=== PATIENT | female | born 1970 | race Hispanic/Latino ===

== ENCOUNTER 2017-01-05 05:03 | Emergency (ER) | payer OTHER ==
[2017-01-05 05:12] VITALS: BMI 24.0
[2017-01-05] MEDS ORDERED: Sodium Chloride 0.9% 1,000 ML IV STA (05:22)
[2017-01-05 05:25] VITALS: TEMP 97.5
--- NOTE | 2017-01-05 05:32 | ED PDOC ---
Arrival/HPI <Luke Kahn - Last Filed: 01/05/17 06:01> - General Historian: Patient <LAURELSILVANONANISHERI - Last Filed: 01/05/17 06:59> - General Chief Complaint: GI Problem Time Seen by Provider: 01/05/17 05:04 - History of Present Illness Narrative History of Present Illness (Text): 01/05/17 05:25 Ms. Alanis is a 46 year old female with past medical history significant for schizophrenia, depression and COPD who presents to the emergency department complaining of diarrhea. She reports that the onset of the diarrhea was four weeks ago. She describes the stool as black, loose, watery stool. She denies any blood in her stool. She has attempted to take Imotrole and Imodium without relief. She denies any alleviating or aggravating factors. She admits to poor oral intake of appropriate fluids and nutrition. She reports not having her appendix or gallbladder. Patient indicated that her fiance 2 weeks ago with similar symptoms of diarrhea. She indicated that her life is very stressful and she is currently drinking alcohol every day. She reports taking in only 2 beers a day. (SHERI BROWN) Past Medical History - Provider Review Nursing Documentation Reviewed: Yes <Luke Kahn - Last Filed: 01/05/17 06:01> - Provider Review Nursing Documentation Reviewed: Yes - Infectious Disease Hx of Infectious Diseases: None - Tetanus Immunization Tetanus Immunization: Unknown - Cardiac Hx Cardiac Disorders: Yes Hx Hypertension: Yes - Pulmonary Hx Chronic Obstructive Pulmonary Disease (COPD): Yes Hx Emphysema: Yes Hx Tuberculosis: No - Neurological HX Cerebrovascular Accident: No Hx Seizures: No - HEENT Hx HEENT Disorder: No - Renal Hx Renal Disorder: No - Endocrine/Metabolic Hx Endocrine Disorders: No - Hematological/Oncological Hx Cancer: No - Integumentary Hx Dermatological Disorder: No - Musculoskeletal/Rheumatological Hx Arthritis: Yes Hx Osteoarthritis: Yes - Gastrointestinal Hx Gastrointestinal Disorders: No - Genitourinary/Gynecological Hx Sexually Transmitted Diseases: Yes (Herpes) - Psychiatric Hx Anxiety: Yes Hx Depression: Yes Hx Schizophrenia: Yes Hx Substance Use: Yes (THC) - Past Surgical History Past Surgical History: Non-Contributing - Surgical History Hx Appendectomy: Yes Hx Cholecystectomy: Yes - Anesthesia Hx Anesthesia: Yes Hx Anesthesia Reactions: No Hx Malignant Hyperthermia: No - Suicidal Assessment Feels Threatened In Home Enviroment: No <SHERI BROWN - Last Filed: 01/05/17 06:59> Family/Social History - Physician Review Nursing Documentation Reviewed: Yes Family/Social History: No Known Family HX <CrissLuke - Last Filed: 01/05/17 06:01> Family/Social History: No Known Family HX Smoking Status: Heavy Smoker > 10 Cigarettes Daily Hx Alcohol Use: Yes Frequency of alcohol use: Daily (2 beers daily) Hx Substance Use: Yes (pot) Substance used: heroin, marijuana Hx Substance Use Treatment: No <SHERI BROWN - Last Filed: 01/05/17 06:59> Allergies/Home Meds <CrissLuke - Last Filed: 01/05/17 06:01> <SHERI BROWN - Last Filed: 01/05/17 06:59> Allergies/Adverse Reactions: Allergies isoniazid Adverse Reaction (Verified 01/26/16 09:04) URTICARIA REFAMYCIN Adverse Reaction (Uncoded 01/26/16 09:04) URTICARIA Home Medications: Home Meds Medication Instructions Recorded Confirmed Lurasidone HCl [Latuda] 20 mg PO DAILY 01/05/17 01/05/17 Review of Systems - Physician Review All systems were reviewed & negative as marked: Yes <GreersegundoLuke - Last Filed: 01/05/17 06:01> - Review of Systems Constitutional: Fatigue. absent: Fevers, Night Sweats Respiratory: SOB, Cough. absent: Wheezing Cardiovascular: absent: Chest Pain, Palpitations, Edema Gastrointestinal: Abdominal Pain, Diarrhea, Appetite Changes. absent: Nausea, Vomiting Genitourinary Female: absent: Dysuria, Frequency, Hematuria Skin: absent: Rash, Pruritis Neurological: Headache Endocrine: absent: Diaphoresis, Polyuria <SHERI BROWN - Last Filed: 01/05/17 06:59> Physical Exam Vital Signs Reviewed: Yes - Systems Exam Head: Present: Atraumatic, Normocephalic Pupils: Present: PERRL Extroacular Muscles: Present: EOMI Mouth: Present: Moist Mucous Membranes. No: Normal Teeth Respiratory/Chest: Present: Clear to Auscultation. No: Respiratory Distress Cardiovascular: Present: Regular Rate and Rhythm, Normal S1, S2. No: Murmurs Abdomen: Present: Tenderness (mild). No: Distention, Normal Bowel Sounds ( hypoactive) Upper Extremity: Present: Normal Inspection. No: Cyanosis, Edema Lower Extremity: Present: Normal Inspection. No: Edema Neurological: Present: GCS=15, CN II-XII Intact, Speech Normal Skin: Present: Warm, Dry Psychiatric: Present: Alert, Oriented x 3 <SHERI BROWN - Last Filed: 01/05/17 06:59> Vital Signs Temp Pulse Resp BP Pulse Ox 01/05/17 05:24 97.5 F L 71 19 135/87 95 Medical Decision Making <GreersegundoLuke - Last Filed: 01/05/17 06:01> <SHERI BROWN - Last Filed: 01/05/17 06:59> ED Course and Treatment: Impression: Pt seen and evaluated with certified medical records coder. Pt, whose past medical history includes COPD, schizophrenia, and depression, presented for dark, watery diarrhea for the past 4 weeks. Pt took [id number] Emetrol and Imodium at home, but denies any significant relief. Aware and agree with HPI, clinical findings, plan, and management. Plan: -- Labs -- Urinalysis -- IV fluids -- Reassess and disposition (CrissLuke) 01/05/17 05:38 Impression: Paola Alanis is a 46 year old female who complains of diarrhea for the past four weeks. Differential Diagnosis included but are not limited to: - chronic diarrhea - Irritable bowel syndrome Plan: - Lab: CBC, BMP, Urinalysis - Meds: IVF 0.9NS, Potassium -- Reassess and disposition Progress Notes: (SHERI BROWN) - Lab Interpretations Lab Results: 01/05/17 06:00 01/05/17 06:00 Lab Results 01/05/17 06:00: Sodium 140, Potassium 3.2 L, Chloride 109 H, Carbon Dioxide 24, Anion Gap 10, BUN 9, Creatinine 0.7, Est GFR ( Amer) > 60, Est GFR (Non- Af Amer) > 60, Random Glucose 89, Calcium 8.2 L 01/05/17 06:00: WBC 7.7, RBC 4.16, Hgb 12.3, Hct 36.4, MCV 87.5, MCH 29.6, MCHC 33.8, RDW 14.1, Plt Count 267, MPV 10.9 - Medication Orders Current Medication Orders: Discontinued Medications Sodium Chloride (Sodium Chloride 0.9%) 1,000 mls @ 999 mls/hr IV .Q1H1M STA Stop: 01/05/17 06:22 Last Admin: 01/05/17 05:38 Dose: 999 mls/hr Potassium Chloride (K-Dur 20 Meq Er Tab) 40 meq PO STAT STA Stop: 01/05/17 06:30 Last Admin: 01/05/17 06:42 Dose: 40 meq Disposition/Present on Arrival <Luke Kahn - Last Filed: 01/05/17 06:01> - Present on Arrival Any Indicators Present on Arrival: No History of DVT/PE: No History of Uncontrolled Diabetes: No Urinary Catheter: No History of Decub. Ulcer: No History Surgical Site Infection Following: None - Disposition Have Diagnosis and Disposition been Completed?: Yes Disposition Time: 07:00 <SHERI BROWN - Last Filed: 01/05/17 06:59> - Disposition Diagnosis: Diarrhea Patient Problems: Current Active Problems Problem Status Onset Diarrhea Acute Condition: IMPROVED Prescriptions: metroNIDAZOLE [Flagyl] 500 mg PO TID #15 tab Referrals: Jcarlos Adhikari MD [Primary Care Provider] - Follow up with primary
[2017-01-05 06:18] LABS: BLOOD UREA NITROGEN 9 mg/dL (7-21); CALCIUM 8.2 mg/dL (8.4-10.5); GFR AFRICAN-AMERICAN > 60; GFR NON-AFRICAN AMERICAN > 60
[2017-01-05 06:20] LABS: HEMOGLOBIN 12.3 gm/dL (12.0-16.0); MEAN CELL VOLUME 87.5 fL (80.0-105.0); MEAN CORPUSCULAR HEMOGLOBIN 29.6 pg (25.0-35.0); MEAN CORPUSCULAR HGB CONC 33.8 g/dl (31.0-37.0); RBC 4.16 10^6/uL (3.5-6.1); WHITE BLOOD COUNT 7.7 10^3/ul (4.5-11.0)
[2017-01-05 06:21] LABS: RED CELL DISTRIBUTION WIDTH 14.1 % (11.5-14.5)
[2017-01-05 06:22] LABS: MEAN PLATELET VOLUME 10.9 fl (7.0-11.0)
[2017-01-05] MEDS ORDERED: Potassium Chloride 20 mEq ER Tab PO STA (06:29)
[2017-01-05 06:48] LABS: PH,URINE 6.5 (4.7-8.0); URINE BILIRUBIN NEGATIVE (NEGATIVE); URINE BLOOD SMALL (NEGATIVE); URINE GLUCOSE (UA) NEGATIVE (NEGATIVE); URINE LEUKOCYTE ESTERASE LARGE Leu/uL (NEGATIVE); URINE NITRATE NEGATIVE (NEGATIVE); URINE PROTEIN 30 mg/dL (<30 mg/dL)
[2017-01-05 07:01] LABS: URINE APPEARANCE SL CLOUDY (CLEAR); URINE COLOR YELLOW (YELLOW)
[2017-01-05 07:04] LABS: URINE BACTERIA MANY (NEG); URINE WBC TNTC /hpf (0-6)
[2017-01-05 07:12] VITALS: BP 134/77; PULSE 75; RESP 18; O2SAT 97
== END 2017-01-05 07:10 | disposition home or self-care (01) ==
LOC: ED 05:03
DX: R19.7 Diarrhea, unspecified (principal)
CPT/HCPCS: 80048; 81001; 85027; 96360; 99284; J7040

== ENCOUNTER 2017-06-09 12:55 | Inpatient (IN) | payer OTHER ==
[2017-06-09 13:06] VITALS: BMI 23.9
--- NOTE | 2017-06-09 13:18 | ED PDOC ---
Arrival/HPI - General Time Seen by Provider: 06/09/17 13:09 Historian: Patient - History of Present Illness Narrative History of Present Illness (Text): 06/09/17 13:21 46 y/o female, psychiatric history including schizoaffective, allergic to TB medications, biba for overdosage on benadryl and motrin started 1-2 hours ago. Pt. over dose on benadryl and motrin as she taking it to sleep. Pt. brings two bottles to the ER department, 1st bottle is ibuprofen 200mg/tablet with 50 tablets which she said she got it on 05/30/2017 and took 10 tablets prior to today's ingestion of 40 tablets which is equivalent to 8000mg po ibuprofen. Pt. stated that she also took handful of benadryl 25mg/capsue with 100 capsules which the bottle bottle here at the ER only with 49 so that she took 51 capsules of benadryl 25mg/capsule which equivalent to 1275mg benadryl. Pt. is here at the ER, stated that she feels fine, no homicidal ideation, not response to the suicidal ideation question, no auditory or visual hallucination, no abdominal or pelvic pain, no numbness or tingling, no other medical or psychological complaints. Past Medical History - Provider Review Nursing Documentation Reviewed: Yes - Infectious Disease Hx of Infectious Diseases: None - Tetanus Immunization Tetanus Immunization: Unknown - Reproductive Currently : No - Cardiac Hx Cardiac Disorders: Yes Hx Hypertension: Yes - Pulmonary Hx Chronic Obstructive Pulmonary Disease (COPD): Yes Hx Emphysema: Yes Hx Tuberculosis: No - Neurological HX Cerebrovascular Accident: No Hx Seizures: No - HEENT Hx HEENT Disorder: No - Renal Hx Renal Disorder: No - Endocrine/Metabolic Hx Endocrine Disorders: No - Hematological/Oncological Hx Cancer: No - Integumentary Hx Dermatological Disorder: No - Musculoskeletal/Rheumatological Hx Arthritis: Yes Hx Osteoarthritis: Yes - Gastrointestinal Hx Gastrointestinal Disorders: No - Genitourinary/Gynecological Hx Sexually Transmitted Diseases: Yes (Herpes) - Psychiatric Hx Anxiety: Yes Hx Depression: Yes Hx Schizophrenia: Yes Hx Substance Use: Yes (pot) - Past Surgical History Past Surgical History: Non-Contributing - Surgical History Hx Appendectomy: Yes Hx Cholecystectomy: Yes - Anesthesia Hx Anesthesia: Yes Hx Anesthesia Reactions: No Hx Malignant Hyperthermia: No - Suicidal Assessment Feels Threatened In Home Enviroment: No Family/Social History - Physician Review Nursing Documentation Reviewed: Yes Family/Social History: Unknown Family HX Smoking Status: Heavy Smoker > 10 Cigarettes Daily Hx Alcohol Use: Yes Hx Substance Use: Yes (pot) Substance used: heroin, marijuana Hx Substance Use Treatment: No Allergies/Home Meds Allergies/Adverse Reactions: Allergies isoniazid Adverse Reaction (Verified 01/26/16 09:04) URTICARIA REFAMYCIN Adverse Reaction (Uncoded 01/26/16 09:04) URTICARIA Home Medications: Home Meds Medication Instructions Recorded Confirmed No Known Home Med 06/09/17 06/09/17 Review of Systems - Review of Systems Constitutional: absent: Fatigue, Fevers Eyes: absent: Vision Changes ENT: absent: Hearing Changes Respiratory: absent: SOB, Cough Cardiovascular: absent: Chest Pain Gastrointestinal: absent: Abdominal Pain, Nausea, Vomiting Skin: absent: Rash, Pruritis Neurological: absent: Headache, Dizziness Endocrine: absent: Diaphoresis Psychiatric: absent: Anxiety, Depression, Suicidal Ideation Physical Exam Vital Signs Reviewed: Yes Vital Signs Temp Pulse Resp BP Pulse Ox 06/09/17 17:00 78 22 129/92 H 100 06/09/17 15:27 78 18 145/84 100 06/09/17 13:05 97.7 F 85 20 133/77 95 Temperature: Afebrile Blood Pressure: Normal Pulse: Regular Respiratory Rate: Normal Appearance: Positive for: Well-Appearing, Non-Toxic, Comfortable Pain Distress: None Mental Status: Positive for: Alert and Oriented X 3 - Systems Exam Head: Present: Atraumatic, Normocephalic Pupils: Present: PERRL Extroacular Muscles: Present: EOMI Conjunctiva: Present: Normal Mouth: Present: Moist Mucous Membranes Neck: Present: Normal Range of Motion Respiratory/Chest: Present: Clear to Auscultation, Good Air Exchange. No: Respiratory Distress, Accessory Muscle Use Cardiovascular: Present: Regular Rate and Rhythm, Normal S1, S2. No: Murmurs Abdomen: Present: Normal Bowel Sounds. No: Tenderness, Distention, Peritoneal Signs, Rebound, Guarding Back: Present: Normal Inspection Upper Extremity: Present: Normal Inspection. No: Cyanosis, Edema Lower Extremity: Present: Normal Inspection. No: Edema Neurological: Present: GCS=15, Speech Normal, Motor Func Grossly Intact, Gait Normal, Memory Normal Skin: Present: Warm, Dry, Normal Color. No: Rashes Psychiatric: Present: Alert, Oriented x 3, Normal Insight, Normal Concentration Medical Decision Making ED Course and Treatment: 06/09/17 13:26 -labs/ua/uds -ekg -cxr -IVF/pepcid -PES notify -Poison control will be notified -monitor tech -Observe and reassess 06/09/17 13:52 -Pt. is alert, +bowel sound. -HORTICULTURALIST Venessa spoke to poison control, nsaid overdosage with no emergent intervention except it causes GI discomfort. If the patient is alert with + bowel sound, then activated charcoal is recommended which I ordered. -60gm of activated charcoal ordered. -EKG: SR @ 81 BPM, no ST elevation or depression, no T wave inversion. 06/09/17 14:30 -Pt. doesn't wanna drink and wants to sleep, will insert NG tube. 06/09/17 15:07 -I spoke to the poison control, discussed about the patient is currently asleep and doesn't wanna drink, suggest don't give the activated charcoal. 06/09/17 15:23 -Dr. Velasquez evaluated the patient as well -Pt. is more drowsiness now, will admit the patient as benadryl will causes prolong QRS and anticholinergic effect, will admit the patient to at least tele and with ICU admission. -paged out to DR. Bacon and ICU molded frames assembler religion instructor. 06/09/17 16:08 -Dr. Bacon called back and not taking the patient. -I spoke to the hospitalist Dr. Elliott, discussed about the case in detail/ labs/radiology results, request ICU consult. -Pending ICU to call back. 06/09/17 16:26 -I spoke to Dr. Gaytan, discussed about the case/labs/radiology results, will come to the ER for evaluation. 06/09/17 16:53 -Dr. Gaytan evaluated the patient, agreed to accept the patient to the ICU. -Dr. Velasquez will put in the admission order. 06/09/17 16:57 -Chest xray show no active disease but the NG tube in suboptimal position, will remove the NG tube since the NG not using it. - Lab Interpretations Lab Results: 06/09/17 13:15 06/09/17 13:15 Lab Results 06/09/17 16:35: Urine Color Yellow, Urine Appearance Clear, Urine pH 6.0, Ur Specific [place] 1.010, Urine Protein Trace H, Urine Glucose (UA) Negative, Urine Ketones Negative, Urine Blood Trace-lysed H, Urine Nitrate Negative, Urine Bilirubin Negative, Urine Urobilinogen 0.2, Ur Leukocyte Esterase Small H , Urine RBC 2 - 5, Urine WBC 5 - 10, Ur Epithelial Cells 6 - 8, Amorphous Sediment Small 06/09/17 16:35: Urine Opiates Screen Positive H, Urine Methadone Screen Negative , Ur Barbiturates Screen Negative, Ur Phencyclidine Scrn Negative, Ur Amphetamines Screen Negative, U Benzodiazepines Scrn Negative, U Oth Cocaine Metabols Negative, U Cannabinoids Screen Negative 06/09/17 16:15: pCO2 30 L, pO2 110.0 H, HCO3 19.0 L, ABG pH 7.41, ABG Total CO2 19.9 L, ABG O2 Saturation 99.4 H, ABG O2 Content 17.2, ABG Base Excess -4.5 L, ABG Hemoglobin 13.0, ABG Carboxyhemoglobin 5.4 H, POC ABG HHb (Measured) 0.6, ABG Methemoglobin 0.7, ABG O2 Capacity 17.3, Hgb O2 Saturation 93.4 L, FiO2 21.0 06/09/17 13:15: Alcohol, Quantitative < 10 06/09/17 13:15: Salicylates < 1 L, Acetaminophen < 10.0 L 06/09/17 13:15: Beta HCG, Quant < 2.39 06/09/17 13:15: Sodium 141, Potassium 3.7, Chloride 108 H, Carbon Dioxide 23, Anion Gap 15, BUN 8, Creatinine 0.9, Est GFR ( Amer) > 60, Est GFR (Non- Af Amer) > 60, Random Glucose 81, Calcium 9.5, Magnesium 1.5 L, Total Bilirubin 0.4, AST 21, ALT 23, Alkaline Phosphatase 66, Total Creatine Kinase 36, Total Protein 7.5, Albumin 4.1, Globulin 3.4, Albumin/Globulin Ratio 1.2 06/09/17 13:15: WBC 9.9 D, RBC 4.56, Hgb 14.3, Hct 42.1, MCV 92.3, MCH 31.4, MCHC 34.0, RDW 14.2, Plt Count 270, MPV 11.2 H, Gran % 54.9, Lymph % (Auto) 33.6 , [place] % (Auto) 9.0 H, Eos % (Auto) 2.2, Baso % (Auto) 0.3, Gran # 5.43, Lymph # 3.3, [place]chran # 0.9 H, Eos # 0.2, Baso # 0.03 - RAD Interpretation Radiology Orders: 06/09/17 13:19 CHEST PORTABLE [RAD] Stat HISTORY: medical clearance COMPARISON: 05/27/2016 FINDINGS: LUNGS: No active pulmonary disease. PLEURA: No significant pleural effusion identified, no pneumothorax apparent. CARDIOVASCULAR: Normal. OSSEOUS STRUCTURES: No significant abnormalities. VISUALIZED UPPER ABDOMEN: The nasogastric tube is in sub optimal position. The distal portion of the catheter is looped 180 degrees at the level of the diaphragm OTHER FINDINGS: None. IMPRESSION: No active disease. See comment Workplace Rehabilitation Officer: Radiologist - EKG Interpretation EKG Interpretation (Text): 06/09/17 14:28 -EKG: SR @ 81 BPM, no ST elevation or depression, no T wave inversion. Interpreted by ED Physician: Yes Type: 12 lead EKG - Medication Orders Current Medication Orders: Sodium Chloride (Sodium Chloride 0.9%) 1,000 mls @ 250 mls/hr IV .Q4H TON Last Admin: 06/09/17 16:50 Dose: 250 mls/hr eMAR Start Stop Document 06/09/17 16:50 YP (Rec: 06/09/17 16:51 YP [id number]) Intravenous Solution Start Date 06/09/17 Start Time 16:51 Lorazepam (Ativan) 2 mg IVP Q2H PRN; Protocol PRN Reason: Symptoms of alcohol withdrawl Pantoprazole Sodium (Protonix Inj) 40 mg IVP DAILY TON Discontinued Medications Charcoal (Actidose 50 Gm/240 Ml Susp) 60 gm PO STAT STA Stop: 06/09/17 13:50 Last Admin: 06/09/17 15:07 Dose: Famotidine (Pepcid) 20 mg IVP STAT STA Stop: 06/09/17 13:20 Last Admin: 06/09/17 13:33 Dose: 20 mg IVP Administration Document 06/09/17 13:33 YP (Rec: 06/09/17 13:33 YP [id number]) Charges for Administration # of IVP Administrations 1 Sodium Chloride (Sodium Chloride 0.9%) 1,000 mls @ 100 mls/hr IV .Q10H TON Last Admin: 06/09/17 14:07 Dose: Sodium Chloride (Sodium Chloride 0.9%) 1,000 mls @ 999 mls/hr IV .Q1H1M STA Stop: 06/09/17 14:19 Last Admin: 06/09/17 13:33 Dose: 999 mls/hr eMAR Start Stop Document 06/09/17 13:33 YP (Rec: 06/09/17 13:33 YP [id number]) Intravenous Solution Start Date 06/09/17 Start Time 13:33 End Date 06/09/17 End time 14:33 Total Infusion Time 60 - PA / DELINQUENCY PREVENTION OFFICER / Resident Statement / has reviewed & agrees with the documentation as recorded. Disposition/Present on Arrival - Present on Arrival Any Indicators Present on Arrival: No History of DVT/PE: No History of Uncontrolled Diabetes: No Urinary Catheter: No History of Decub. Ulcer: No History Surgical Site Infection Following: None - Disposition Have Diagnosis and Disposition been Completed?: Yes Diagnosis: Overdose Disposition: HOSPITALIZED Disposition Time: 15:26 Patient Plan: Admission, ICU Patient Problems: Current Active Problems Problem Status Onset Overdose Acute Condition: GUARDED
[2017-06-09] MEDS ORDERED: Sodium Chloride 0.9% 1,000 ML IV STA (13:19)
[2017-06-09 13:29] LABS: BASO # 0.03 K/mm3 (0.0-2.0); BASO % 0.3 % (0.0-3.0); EOS # 0.2 (0.0-0.7); EOS % 2.2 % (1.5-5.0); GRAN # 5.43 (1.4-6.5); GRAN % 54.9 % (50.0-68.0); HEMATOCRIT 42.1 % (36.0-48.0); LYMPH # 3.3 (1.2-3.4); LYMPH % 33.6 % (22.0-35.0); MEAN CELL VOLUME 92.3 fl (80.0-105.0); MEAN CORPUSCULAR HEMOGLOBIN 31.4 pg (25.0-35.0); MEAN PLATELET VOLUME 11.2 fl (7.0-11.0); MONO # 0.9 (0.1-0.6); RED CELL DISTRIBUTION WIDTH 14.2 % (11.5-14.5); WHITE BLOOD COUNT 9.9 10^3/ul (4.5-11.0)
[2017-06-09] MEDS ORDERED: Sodium Chloride 0.9% 1,000 ML IV SCH (13:30)
[2017-06-09 13:43] LABS: ALB/GLOB RATIO 1.2 (1.1-1.8); ALKALINE PHOSPHATASE 66 U/L (38-126); ALT/SGPT 23 U/L (7-56); AST/SGOT 21 U/L (14-36); BILIRUBIN,TOTAL 0.4 mg/dL (0.2-1.3); BLOOD UREA NITROGEN 8 mg/dL (7-21); CALCIUM 9.5 mg/dL (8.4-10.5); CARBON DIOXIDE 23 mmol/L (21-33); CHLORIDE 108 mmol/L (98-107); GFR AFRICAN-AMERICAN > 60; GLUCOSE,RANDOM 81 mg/dL (70-110); MAGNESIUM 1.5 mg/dL (1.7-2.2); POTASSIUM 3.7 mmol/L (3.6-5.0); SODIUM 141 mmol/L (132-148); TOTAL PROTEIN 7.5 g/dL (5.8-8.3)
[2017-06-09] MEDS: Charcoal 50 gm/240 ml Susp PO STA ×2 (14:25→15:07)
[2017-06-09 15:27] VITALS: O2SAT 100
--- NOTE | 2017-06-09 15:32 | RAD ---
HISTORY: medical clearance COMPARISON: 05/27/2016 FINDINGS: LUNGS: No active pulmonary disease. PLEURA: No significant pleural effusion identified, no pneumothorax apparent. CARDIOVASCULAR: Normal. OSSEOUS STRUCTURES: No significant abnormalities. VISUALIZED UPPER ABDOMEN: The nasogastric tube is in sub optimal position. The distal portion of the catheter is looped 180 degrees at the level of the diaphragm OTHER FINDINGS: None. IMPRESSION: No active disease. See comment
[2017-06-09 16:26] LABS: ARTERIAL BLOOD GAS O2 CAPACITY 17.3 mL/dl (16-24); ARTERIAL BLOOD GAS O2 CONTENT 17.2 ML/dl (15-23); ARTERIAL BLOOD GAS PH 7.41 (7.35-7.45); ARTERIAL BLOOD HGB O2 SAT 93.4 % (95.0-98.0); CARBOXYHEMOGLOBIN 5.4 % (0.5-1.5); HHB 0.6 % (0-5); METHEMOGLOBIN 0.7 % (0.0-3.0)
[2017-06-09 16:46] LABS: URINE BILIRUBIN NEGATIVE (NEGATIVE); URINE BLOOD TRACE-LYSED (NEGATIVE); URINE GLUCOSE (UA) NEGATIVE (NEGATIVE); URINE KETONE NEGATIVE (NEGATIVE); URINE LEUKOCYTE ESTERASE SMALL Leu/uL (NEGATIVE); URINE PROTEIN TRACE mg/dL (<30 mg/dL); URINE UROBILINOGEN 0.2 E.U./dL (<1 E.U./dL)
[2017-06-09] MEDS: Sodium Chloride 0.9% 1,000 ML IV SCH ×2 (16:50→22:30)
[2017-06-09 17:22] LABS: URINE APPEARANCE CLEAR (CLEAR); URINE COLOR YELLOW (YELLOW)
[2017-06-09 17:23] LABS: URINE AMORPHOUS SEDIMENT SMALL
--- NOTE | 2017-06-09 17:31 | CP.PCM.HP ---
<SteveTrista - Last Filed: 06/09/17 17:17> History of Present Illness - History of Present Illness History of Present Illness: Dr. Elliott Service 46 F with PMHx of HTN, COPD, Asthma, OA, Schizoaffective dsr, depression, polysubstance abuse, and hx of TB treated with INH and Rifampin in the past presented to the [facility] ED by ambulance with complaints of Overdose of ibuprofen and benadryl 1-2 hrs prior to ED arrival. As per ED, pt had two bottles with her upon arriving to the ED and stated that she ingested multiple ibuprofen and benadryl pills, totaling approx 8g ibuprofen and 1275mg Benadryl. Poison control was contacted and recommended EKG, activated charcoal and observation. EKG demonstrated NSR at 81 bpm. NGT was placed for activated charcoal, however as the patient became more somnolent, poison control advised against activate charcoal at this time. Pt was seen and examined at bedside. Pt is altered and cannot provide any history or ROS at this time. Pt admitted to ICU for further close monitoring and management. PMHx: HTN, COPD, Asthma, OA, Schizoaffective dsr, depression, polysubstance abuse, and hx of TB treated with INH and Rifampin PSHx: Appendectomy, Cholecystectomy SHx: + tobacco 1ppd, + EtOH, + marijuana, + Heroin (2 days ago), LMP: 05/30/17 FamHx: Noncontributory Allergies: Isoniazid, Refamycin Meds: MAR Reviewed Present on Admission - Present on Admission Any Indicators Present on Admission: No Review of Systems - Review of Systems Systems not reviewed;Unavailable: Altered Mental Status Past Patient History - Infectious Disease Hx of Infectious Diseases: None - Tetanus Immunizations Tetanus Immunization: Unknown - Past Social History Smoking Status: Heavy Smoker > 10 Cigarettes Daily - CARDIAC Hx Cardiac Disorders: Yes Hx Hypertension: Yes - PULMONARY Hx Chronic Obstructive Pulmonary Disease (COPD): Yes Hx Emphysema: Yes Hx Tuberculosis: No - NEUROLOGICAL HX Cerebrovascular Accident: No Hx Seizures: No - HEENT Hx HEENT Problems: No - RENAL Hx Chronic Kidney Disease: No - ENDOCRINE/METABOLIC Hx Endocrine Disorders: No - HEMATOLOGICAL/ONCOLOGICAL Hx Cancer: No - INTEGUMENTARY Hx Dermatological Problems: No - MUSCULOSKELETAL/RHEUMATOLOGICAL Hx Arthritis: Yes Hx Osteoarthritis: Yes - GASTROINTESTINAL Hx Gastrointestinal Disorders: No - GENITOURINARY/GYNECOLOGICAL Hx Sexually Transmitted Disorders: Yes (Herpes) - PSYCHIATRIC Hx Anxiety: Yes Hx Depression: Yes Hx Schizophrenia: Yes Hx Substance Use: Yes (pot) - SURGICAL HISTORY Hx Appendectomy: Yes Hx Cholecystectomy: Yes - ANESTHESIA Hx Anesthesia: Yes Hx Anesthesia Reactions: No Hx Malignant Hyperthermia: No Meds Home Medications: Home Medication List Medication Instructions Recorded Confirmed Type LORazepam [Ativan] 1 mg PO Q8 PRN #6 tab 06/10/17 Rx Nicotine [Nicoderm Cq] 1 each TD DAILY #10 patch.td24 06/10/17 Rx Pantoprazole Sodium [Protonix] 40 mg PO DAILY #30 ect 06/10/17 Rx Allergies/Adverse Reactions: Allergies Allergy/AdvReac Type Severity Reaction Status Date / Time isoniazid AdvReac URTICARIA Verified 01/26/16 09:04 REFAMYCIN AdvReac URTICARIA Uncoded 01/26/16 09:04 Physical Exam - Constitutional Appears: Confused - Head Exam Head Exam: ATRAUMATIC, NORMAL INSPECTION, NORMOCEPHALIC - Eye Exam Eye Exam: EOMI, Normal appearance, PERRL Pupil Exam: Mydriatic - ENT Exam ENT Exam: Mucous Membranes Dry - Respiratory Exam Respiratory Exam: Clear to Auscultation Bilateral, NORMAL BREATHING PATTERN - Cardiovascular Exam Cardiovascular Exam: REGULAR RHYTHM, +S1, +S2 - GI/Abdominal Exam GI & Abdominal Exam: Normal Bowel Sounds, Soft. absent: Tenderness - Extremities Exam Extremities exam: Positive for: normal capillary refill, normal inspection, pedal pulses present - Neurological Exam Neurological exam: Altered, CN II-XII Intact - Skin Skin Exam: Dry, Intact, Normal Color, Warm Results - Vital Signs Recent Vital Signs: Last Vital Signs Temp 97.7 F 06/09/17 13:05 Pulse 78 06/09/17 17:00 Resp 22 06/09/17 17:00 BP 129/92 H 06/09/17 17:00 Pulse Ox 100 06/09/17 17:00 - Labs Result Diagrams: 06/09/17 13:15 06/09/17 13:15 Assessment & Plan - Assessment and Plan (Free Text) Assessment: 46 F with PMHx of HTN, COPD, Asthma, OA, Schizoaffective dsr, depression, polysubstance abuse, and hx of TB treated with INH and Rifampin in the past presented to the [facility] ED by ambulance with complaints of Overdose of ibuprofen and benadryl admitted to the ICU for close monitoring, airway protection and further management. Overdose - ibuprofen/ benadryl - poison control contacted recommended EKG and close observation, fu in AM with poison control - UDS - aspiration precautions - seizure precautions - high fall risk - monitor for anticholinergic tox AMS - secondary to OD - fu UDS - neurochecks - restraints for patient safety - continue to monitor and reassess Polysubstance abuse - hx of Etoh, Marijuana, Heorin - WA protocol - ativan prn - continue to monitor HTN - VSS - continue to monitor COPD - 02 sat >90% - no wheezing - continue to monitor GI/DVT ppx - protonix, SCD Seen reviewed and discussed with attending <Marcin Elliott - Last Filed: 06/10/17 16:46> Results - Vital Signs Recent Vital Signs: Last Vital Signs Temp 96.4 F L 06/10/17 04:00 Pulse 57 L 06/10/17 10:00 Resp 16 06/10/17 07:36 BP 133/85 06/10/17 07:00 Pulse Ox 100 06/09/17 21:40 - Labs Result Diagrams: 06/10/17 06:00 06/10/17 06:00 Labs: Laboratory Results - last 24 hr 06/09/17 06/10/17 06/10/17 18:00 06:00 06:00 WBC 9.5 RBC 3.83 Hgb 11.5 L D Hct 35.0 L MCV 91.4 MCH 30.0 MCHC 32.9 RDW 14.1 Plt Count 209 MPV 11.0 Gran % 63.7 Lymph % (Auto) 26.0 [place] % (Auto) 9.0 H Eos % (Auto) 1.1 L Baso % (Auto) 0.2 Gran # 6.03 Lymph # 2.5 [place] # 0.9 H Eos # 0.1 Baso # 0.02 PT 12.2 INR 1.12 H APTT 30.2 Sodium 142 Potassium 3.6 Chloride 116 H Carbon Dioxide 20 L Anion Gap 9 L BUN 6 L Creatinine 0.9 Est GFR ( Amer) > 60 Est GFR (Non-Af Amer) > 60 Random Glucose 69 L Calcium 7.5 L Phosphorus 2.6 Magnesium 1.7 Total Bilirubin 0.4 AST 17 ALT 20 Alkaline Phosphatase 37 L D Total Protein 5.5 L Albumin 2.9 L Globulin 2.6 Albumin/Globulin Ratio 1.1 Urine Color Urine Appearance Urine pH Ur Specific Reading Urine Protein Urine Glucose (UA) Urine Ketones Urine Blood Urine Nitrate Urine Bilirubin Urine Urobilinogen Ur Leukocyte Esterase Urine RBC Urine WBC Ur Epithelial Cells Amorphous Sediment Urine Bacteria 06/10/17 14:30 WBC RBC Hgb Hct MCV MCH MCHC RDW Plt Count MPV Gran % Lymph % (Auto) [place] % (Auto) Eos % (Auto) Baso % (Auto) Gran # Lymph # [place] # Eos # Baso # PT INR APTT Sodium Potassium Chloride Carbon Dioxide Anion Gap BUN Creatinine Est GFR ( Amer) Est GFR (Non-Af Amer) Random Glucose Calcium Phosphorus Magnesium Total Bilirubin AST ALT Alkaline Phosphatase Total Protein Albumin Globulin Albumin/Globulin Ratio Urine Color Yellow Urine Appearance Sl cloudy Urine pH 5.5 Ur Specific Reading 1.025 Urine Protein Negative Urine Glucose (UA) Negative Urine Ketones 15 H Urine Blood Moderate H Urine Nitrate Negative Urine Bilirubin Negative Urine Urobilinogen 0.2 Ur Leukocyte Esterase Small H Urine RBC 20 - 25 Urine WBC 5 - 10 Ur Epithelial Cells Many Amorphous Sediment Few Urine Bacteria Large Attending/Attestation - Attestation I have personally seen and examined this patient.: Yes I have fully participated in the care of the patient.: Yes I have reviewed all pertinent clinical information: Yes Notes (Text): 06/10/17 16:44 attending note; Patient seen and examined with resident. Patient is a 46-year-old female with a history of Asthma, arthritis, Schizoaffective disorder, depression, polysubstance abuse, and history of remote TB treated is admitted with Overdose of ibuprofen and benadryl. patient was lethargic the ER. Patient will be admitted to ICU for observation. Initially NG tube was placed. But activated charcoal was not given secondary to lethargy. Poison control was contacted. Continue supportive care. History of anxiety depression; psychiatric evaluation requested. Upon discharge the patient will follow up with PMD of choice. Patient needs close follow-up with psychiatrist as outpatient.
[2017-06-09] MEDS ORDERED: Magnesium Sulfate 1 gm in D5W 1 GM/100 ML BAG IVPB ONE (18:03)
[2017-06-09 18:19] LABS: INR 1.12 (0.93-1.08); PARTIAL THROMBOPLASTIN TIME 30.2 Seconds (25.1-36.5)
--- NOTE | 2017-06-09 23:55 | CARD ---
APPROVED REPORT EKG Measurement Heart [id number] 106P5 [id number] <Conclusion> Sinus rhythm with short NE Otherwise normal ECG
[2017-06-10] MEDS: Sodium Chloride 0.9% 1,000 ML IV SCH ×3 (02:30→08:07)
--- NOTE | 2017-06-10 03:36 | CON ---
DATE: 06/09/2017 HISTORY OF PRESENT ILLNESS: This is a 46-year-old lady with history of schizoaffective disorder, who lives alone and who was brought into [facility] ER by her neighbor who witnessed her swallowing many pills of ibuprofen and Benadryl. According to ER note, as the patient cannot provide more of HPI or PMH, the patient swallowed reportedly and approximately one bottle of ibuprofen 200 mg tablet with total amount of about 40 tablets and about 51 capsules of Benadryl. At present time, the patient is awake but clearly disoriented, not communicative. She appears to be able to protect her airways, hemodynamically and respiratory walker stable. She appears to be hallucinating a little bit, but she is calm, very slightly lethargic; however, appears to be aware about her environment and surrounding. She is comfortable. No fever. No chills. No sweats. No nausea. No vomiting. No diarrhea. PAST MEDICAL HISTORY: Schizoaffective disorder, history of osteoarthritis, anxiety, depression, history of marijuana abuse. FAMILY HISTORY: Noncontributory. ALLERGIES: ISONIAZID, URTICARIA; AND RIFAMYCIN, URTICARIA. SOCIAL HISTORY: The patient is heavy smoker and smokes more than 10 cigarettes a day. She also appears to be abusing alcohol and other drugs including heroin and marijuana. REVIEW OF SYSTEMS: Review of 12-organ system other than mentioned in history of present illness is negative. MEDICATIONS AT HOME: The patient is not on any chronic medication, and Benadryl and ibuprofen she takes only as needed basis apart from today's episode of overdose. PHYSICAL EXAMINATION: GENERAL: The patient is comfortable, alert, awake, very mildly somnolent. She appears to be hallucinating, but pleasantly disoriented. VITAL SIGNS: Heart rate 77, oxygen saturation 100% on room air, blood pressure 129/92, respiratory rate 14, 15. ENT: Head and neck atraumatic. LUNGS: Clear to auscultation bilaterally. HEART: Regular rate and rhythm, S1 and S2 normal. ABDOMEN: Soft, nontender, nondistended. MUSCULOSKELETAL EXAM: No C/C/E. NEURO: The patient moves all extremities spontaneously. SKIN: Moist. PSYCH: The patient is noncommunicative, calm, mildly lethargic but alert and awake. LABORATORY DATA: WBC 9.9, hemoglobin 14.3, platelet count 270. Sodium 141, potassium 3.7, chloride 108, carbon dioxide 23, BUN 8, creatinine 0.9, glucose 81. Albumin 4.1. ABG showed 7.41/30/110 on room air. Tylenol level less than 10. Salicylates less than 1. Alcohol less than 10. The patient is on normal saline at 250 mL/hour. Chest x-ray showed no active pulmonary disease, NG tube is not in correct position and it was removed. ASSESSMENT/PLAN: This 46-year-old lady with substantial overdose of Benadryl and ibuprofen. EKG showed no ischemic changes and QTC is 471. Poison control was called. The patient will be admitted to ICU for overnight observation. We will continue with serial CBC, BMP. We will supplement electrolytes. We will have low threshold for intubation for airways protection. Even though the patient appears to be hallucinating, she is calm, comfortable and protecting her airways. Haile catheter will be placed. We will continue with one-to-one observation and psychiatric follow up. We will continue with DVT, GI prophylaxis. We will continue with aspiration precaution. ccm time 40 min Cam Gaytan MD [facility]
[2017-06-10 04:25] VITALS: TEMP 96.4
[2017-06-10 06:21] LABS: BASO # 0.02 K/mm3 (0.0-2.0); BASO % 0.2 % (0.0-3.0); EOS # 0.1 (0.0-0.7); EOS % 1.1 % (1.5-5.0); GRAN # 6.03 (1.4-6.5); GRAN % 63.7 % (50.0-68.0); LYMPH # 2.5 (1.2-3.4); MEAN CELL VOLUME 91.4 fl (80.0-105.0); MEAN CORPUSCULAR HGB CONC 32.9 g/dl (31.0-37.0); MONO # 0.9 (0.1-0.6); RED CELL DISTRIBUTION WIDTH 14.1 % (11.5-14.5); WHITE BLOOD COUNT 9.5 10^3/ul (4.5-11.0)
[2017-06-10 07:02] LABS: ALB/GLOB RATIO 1.1 (1.1-1.8); ALKALINE PHOSPHATASE 37 U/L (38-126); ALT/SGPT 20 U/L (7-56); AST/SGOT 17 U/L (14-36); BILIRUBIN,TOTAL 0.4 mg/dL (0.2-1.3); BLOOD UREA NITROGEN 6 mg/dL (7-21); CALCIUM 7.5 mg/dL (8.4-10.5); CARBON DIOXIDE 20 mmol/L (21-33); CHLORIDE 116 mmol/L (98-107); GFR AFRICAN-AMERICAN > 60; GLUCOSE,RANDOM 69 mg/dL (70-110); MAGNESIUM 1.7 mg/dL (1.7-2.2); PHOSPHOROUS 2.6 mg/dL (2.5-4.5); POTASSIUM 3.6 mmol/L (3.6-5.0); SODIUM 142 mmol/L (132-148); TOTAL PROTEIN 5.5 g/dL (5.8-8.3)
[2017-06-10 07:40] VITALS: BP 133/85; RESP 16
--- NOTE | 2017-06-10 10:41 | CP.CCUPN ---
<Cristhian Kerr - Last Filed: 06/10/17 10:47> CCU Subjective - Physician Review Subjective (Free Text): Critical care progress note for Dr. Roe Patient seen and examined at bedside this morning. No acute overnight events or new complaints reported. Denies chest pain, palpitations, SOB, abdominal pain, nausea, vomiting. CCU Objective - Vital Signs / Intake & Output Vital Signs (Last 4 hours): Vital Signs Pulse Resp BP 06/10/17 07:36 56 L 16 06/10/17 07:35 58 L 22 06/10/17 07:34 61 16 06/10/17 07:33 61 06/10/17 07:32 62 16 06/10/17 07:31 58 L 16 06/10/17 07:30 58 L 06/10/17 07:29 61 06/10/17 07:28 62 23 06/10/17 07:27 58 L 17 06/10/17 07:26 59 L 15 06/10/17 07:25 58 L 37 H 06/10/17 07:24 55 L 17 06/10/17 07:23 58 L 19 06/10/17 07:22 56 L 18 06/10/17 07:21 57 L 19 06/10/17 07:20 65 29 H 06/10/17 07:19 59 L 26 H 06/10/17 07:18 55 L 17 06/10/17 07:17 67 28 H 06/10/17 07:16 52 L 17 06/10/17 07:15 57 L 19 06/10/17 07:14 54 L 15 06/10/17 07:13 62 19 06/10/17 07:12 57 L 26 H 06/10/17 07:11 57 L 25 H 06/10/17 07:10 58 L 18 06/10/17 07:09 57 L 16 06/10/17 07:08 65 22 06/10/17 07:07 73 27 H 06/10/17 07:06 56 L 21 06/10/17 07:05 59 L 20 06/10/17 07:04 70 34 H 06/10/17 07:03 58 L 22 06/10/17 07:02 57 L 31 H 06/10/17 07:01 68 06/10/17 07:00 133/85 06/10/17 06:59 71 30 H 06/10/17 06:58 58 L 15 06/10/17 06:57 65 13 06/10/17 06:56 63 23 06/10/17 06:55 54 L 49 H 06/10/17 06:54 61 39 H 06/10/17 06:53 54 L 20 06/10/17 06:52 55 L 39 H 06/10/17 06:45 63 17 06/10/17 06:44 58 L 18 06/10/17 06:43 58 L 29 H 06/10/17 06:42 60 29 H 06/10/17 06:41 63 Intake and Output (Last 8hrs): Intake & Output 06/09/17 06/10/17 06/10/17 22:59 06:59 14:59 Intake Total 1500 2750 Output Total 300 500 Balance 1200 2250 Weight 125 lb 3 oz Intake: IV 1500 2750 Left Forearm 1500 2750 Output: Urine 300 500 Straight 300 500 Other: # Bowel Movements 0 - Physical Exam Head: Positive for: Atraumatic, Normocephalic Pupils: Positive for: PERRL Extroacular Muscles: Positive for: EOMI Conjunctiva: Positive for: Normal Mouth: Positive for: Moist Mucous Membranes Neck: Positive for: Normal Range of Motion Respiratory/Chest: Positive for: Clear to Auscultation, Good Air Exchange. Negative for: Respiratory Distress, Accessory Muscle Use, Rales, Rhonchi Cardiovascular: Positive for: Regular Rate and Rhythm, Normal S1, S2. Negative for: Murmurs, Rub, Gallop Abdomen: Positive for: Normal Bowel Sounds. Negative for: Tenderness, Distention, Peritoneal Signs, Rebound, Guarding Back: Positive for: Normal Inspection Upper Extremity: Positive for: Normal Inspection. Negative for: Cyanosis, Edema Lower Extremity: Positive for: Normal Inspection. Negative for: Edema Neurological: Positive for: GCS=15, CN II-XII Intact, Speech Normal, Motor Func Grossly Intact Skin: Positive for: Warm, Dry, Normal Color. Negative for: Rashes Psychiatric: Positive for: Alert, Oriented x 3 - Medications Active Medications: Active Medications Generic Name Dose Route Start Last Admin Trade Name Freq PRN Reason Stop Dose Admin Lorazepam 2 mg 06/09/17 17:13 06/10/17 09:11 Ativan IVP 2 mg Q2H PRN Administration Symptoms of alcohol withdrawl Protocol Pantoprazole Sodium 40 mg 06/09/17 17:15 06/09/17 17:46 Protonix Inj IVP 40 mg DAILY TON Administration - Patient Studies Lab Studies: Lab Studies 06/10/17 06/10/17 06/09/17 Range/Units 06:00 06:00 18:00 WBC 9.5 (4.5-11.0) 10^3/ul RBC 3.83 (3.5-6.1) 10^6/uL Hgb 11.5 L D (12.0-16.0) g/dL Hct 35.0 L (36.0-48.0) % MCV 91.4 (80.0-105.0) fl MCH 30.0 (25.0-35.0) pg MCHC 32.9 (31.0-37.0) g/dl RDW 14.1 (11.5-14.5) % Plt Count 209 (120.0-450.0) 10^3/uL MPV 11.0 (7.0-11.0) fl Gran % 63.7 (50.0-68.0) % Lymph % (Auto) 26.0 (22.0-35.0) % [place] % (Auto) 9.0 H (1.0-6.0) % Eos % (Auto) 1.1 L (1.5-5.0) % Baso % (Auto) 0.2 (0.0-3.0) % Gran # 6.03 (1.4-6.5) Lymph # 2.5 (1.2-3.4) [place] # 0.9 H (0.1-0.6) Eos # 0.1 (0.0-0.7) Baso # 0.02 (0.0-2.0) K/mm3 PT 12.2 (9.4-12.5) SECONDS INR 1.12 H (0.93-1.08) APTT 30.2 (25.1-36.5) Seconds Sodium 142 (132-148) mmol/L Potassium 3.6 (3.6-5.0) mmol/L Chloride 116 H (98-107) mmol/L Carbon Dioxide 20 L (21-33) mmol/L Anion Gap 9 L (10-20) BUN 6 L (7-21) mg/dL Creatinine 0.9 (0.7-1.2) mg/dl Est GFR ( Amer) > 60 Est GFR (Non-Af Amer) > 60 Random Glucose 69 L (70-110) mg/dL Calcium 7.5 L (8.4-10.5) mg/dL Phosphorus 2.6 (2.5-4.5) mg/dL Magnesium 1.7 (1.7-2.2) mg/dL Total Bilirubin 0.4 (0.2-1.3) mg/dL AST 17 (14-36) U/L ALT 20 (7-56) U/L Alkaline Phosphatase 37 L D (38-126) U/L Total Protein 5.5 L (5.8-8.3) g/dL Albumin 2.9 L (3.0-4.8) g/dL Globulin 2.6 gm/dL Albumin/Globulin Ratio 1.1 (1.1-1.8) Laboratory Results - last 24 hr 06/09/17 06/10/17 06/10/17 18:00 06:00 06:00 WBC 9.5 RBC 3.83 Hgb 11.5 L D Hct 35.0 L MCV 91.4 MCH 30.0 MCHC 32.9 RDW 14.1 Plt Count 209 MPV 11.0 Gran % 63.7 Lymph % (Auto) 26.0 [place] % (Auto) 9.0 H Eos % (Auto) 1.1 L Baso % (Auto) 0.2 Gran # 6.03 Lymph # 2.5 [place] # 0.9 H Eos # 0.1 Baso # 0.02 PT 12.2 INR 1.12 H APTT 30.2 Sodium 142 Potassium 3.6 Chloride 116 H Carbon Dioxide 20 L Anion Gap 9 L BUN 6 L Creatinine 0.9 Est GFR ( Amer) > 60 Est GFR (Non-Af Amer) > 60 Random Glucose 69 L Calcium 7.5 L Phosphorus 2.6 Magnesium 1.7 Total Bilirubin 0.4 AST 17 ALT 20 Alkaline Phosphatase 37 L D Total Protein 5.5 L Albumin 2.9 L Globulin 2.6 Albumin/Globulin Ratio 1.1 EKG/Cardiology Studies: Cardiology / EKG Studies 06/09/17 20:40 EKG [ELECTROCARDIOGRAM] Routine Comment: to check QTC Reason For Exam: to check QTC PRE OP:: N Does Patient Have a Pacemaker?: No PERFORMING PHYSICIAN/PROVIDER:: Montse Silva 06/10/17 06:00 EKG [ELECTROCARDIOGRAM] DAILY Comment: Reason For Exam: OD Critical Care Progress Note - Nutrition Nutrition: Nutrition Category Date Time Status NPO Diet [DIET] Diets 06/09/17 Dinner Ordered Regular Diet [DIET] Diets 06/10/17 Lunch Ordered Assessment/Plan - Assessment and Plan (Free Text) Plan: 46yo female with history of depression, polysubstance abuse, COPD, asthma, schizoaffective disorder presents s/p overdose of benadryl and ibuprofen Neuro: -Awake, alert, orientedx3 ; Maintain normothermia; Neurochecks Cardio: -Monitor and maintain MAP > 65 -EKG reviewed; revealed sinus rhythm with short [place]; QTc within normal limits Pulm: -CXR reviewed; no active disease -Monitor and maintain SaO2>90%; presently comfortable on room air GI: -Patient s/p ingestion of copious amounts of benadryl and ibuprofen -Poison control notified; recommended EKG and close monitoring -CIWA protocol; ativan PRN -Continue with protonix for GI prophylaxis Nephro: -BUN/Cr within normal limits -Monitor and correct electrolyte abnormalities as indiciated Endo: -Regular diet -Monitor and maintain euglycemia with blood glucose between 140-180 Heme: -DVT prophylaxis with SCD's -H/H within normal limits ID: -afebrile, no leukocytosis -no signs/symptoms of infection at this time, continue to monitor Patient seen and case discussed/reviewed with attending, Dr. Roe <Flo Roe - Last Filed: 06/10/17 11:04> CCU Objective - Vital Signs / Intake & Output Vital Signs (Last 4 hours): Vital Signs Pulse Resp 06/10/17 07:36 56 L 16 06/10/17 07:35 58 L 22 06/10/17 07:34 61 16 06/10/17 07:33 61 06/10/17 07:32 62 16 06/10/17 07:31 58 L 16 06/10/17 07:30 58 L 06/10/17 07:29 61 06/10/17 07:28 62 23 06/10/17 07:27 58 L 17 06/10/17 07:26 59 L 15 06/10/17 07:25 58 L 37 H 06/10/17 07:24 55 L 17 06/10/17 07:23 58 L 19 06/10/17 07:22 56 L 18 06/10/17 07:21 57 L 19 06/10/17 07:20 65 29 H 06/10/17 07:19 59 L 26 H 06/10/17 07:18 55 L 17 06/10/17 07:17 67 28 H 06/10/17 07:16 52 L 17 06/10/17 07:15 57 L 19 06/10/17 07:14 54 L 15 06/10/17 07:13 62 19 06/10/17 07:12 57 L 26 H 06/10/17 07:11 57 L 25 H 06/10/17 07:10 58 L 18 06/10/17 07:09 57 L 16 06/10/17 07:08 65 22 06/10/17 07:07 73 27 H 06/10/17 07:06 56 L 21 06/10/17 07:05 59 L 20 06/10/17 07:04 70 34 H 06/10/17 07:03 58 L 22 Intake and Output (Last 8hrs): Intake & Output 06/09/17 06/10/17 06/10/17 22:59 06:59 14:59 Intake Total 1500 2750 Output Total 300 500 Balance 1200 2250 Weight 125 lb 3 oz Intake: IV 1500 2750 Left Forearm 1500 2750 Output: Urine 300 500 Straight 300 500 Other: # Bowel Movements 0 - Medications Active Medications: Active Medications Generic Name Dose Route Start Last Admin Trade Name Freq PRN Reason Stop Dose Admin Lorazepam 2 mg 06/09/17 17:13 06/10/17 09:11 Ativan IVP 2 mg Q2H PRN Administration Symptoms of alcohol withdrawl Protocol Pantoprazole Sodium 40 mg 06/09/17 17:15 06/09/17 17:46 Protonix Inj IVP 40 mg DAILY TON Administration - Patient Studies Lab Studies: Lab Studies 06/10/17 06/10/17 06/09/17 Range/Units 06:00 06:00 18:00 WBC 9.5 (4.5-11.0) 10^3/ul RBC 3.83 (3.5-6.1) 10^6/uL Hgb 11.5 L D (12.0-16.0) g/dL Hct 35.0 L (36.0-48.0) % MCV 91.4 (80.0-105.0) fl MCH 30.0 (25.0-35.0) pg MCHC 32.9 (31.0-37.0) g/dl RDW 14.1 (11.5-14.5) % Plt Count 209 (120.0-450.0) 10^3/uL MPV 11.0 (7.0-11.0) fl Gran % 63.7 (50.0-68.0) % Lymph % (Auto) 26.0 (22.0-35.0) % [place] % (Auto) 9.0 H (1.0-6.0) % Eos % (Auto) 1.1 L (1.5-5.0) % Baso % (Auto) 0.2 (0.0-3.0) % Gran # 6.03 (1.4-6.5) Lymph # 2.5 (1.2-3.4) [place] # 0.9 H (0.1-0.6) Eos # 0.1 (0.0-0.7) Baso # 0.02 (0.0-2.0) K/mm3 PT 12.2 (9.4-12.5) SECONDS INR 1.12 H (0.93-1.08) APTT 30.2 (25.1-36.5) Seconds Sodium 142 (132-148) mmol/L Potassium 3.6 (3.6-5.0) mmol/L Chloride 116 H (98-107) mmol/L Carbon Dioxide 20 L (21-33) mmol/L Anion Gap 9 L (10-20) BUN 6 L (7-21) mg/dL Creatinine 0.9 (0.7-1.2) mg/dl Est GFR ( Amer) > 60 Est GFR (Non-Af Amer) > 60 Random Glucose 69 L (70-110) mg/dL Calcium 7.5 L (8.4-10.5) mg/dL Phosphorus 2.6 (2.5-4.5) mg/dL Magnesium 1.7 (1.7-2.2) mg/dL Total Bilirubin 0.4 (0.2-1.3) mg/dL AST 17 (14-36) U/L ALT 20 (7-56) U/L Alkaline Phosphatase 37 L D (38-126) U/L Total Protein 5.5 L (5.8-8.3) g/dL Albumin 2.9 L (3.0-4.8) g/dL Globulin 2.6 gm/dL Albumin/Globulin Ratio 1.1 (1.1-1.8) Laboratory Results - last 24 hr 06/09/17 06/10/17 06/10/17 18:00 06:00 06:00 WBC 9.5 RBC 3.83 Hgb 11.5 L D Hct 35.0 L MCV 91.4 MCH 30.0 MCHC 32.9 RDW 14.1 Plt Count 209 MPV 11.0 Gran % 63.7 Lymph % (Auto) 26.0 [place] % (Auto) 9.0 H Eos % (Auto) 1.1 L Baso % (Auto) 0.2 Gran # 6.03 Lymph # 2.5 [place] # 0.9 H Eos # 0.1 Baso # 0.02 PT 12.2 INR 1.12 H APTT 30.2 Sodium 142 Potassium 3.6 Chloride 116 H Carbon Dioxide 20 L Anion Gap 9 L BUN 6 L Creatinine 0.9 Est GFR ( Amer) > 60 Est GFR (Non-Af Amer) > 60 Random Glucose 69 L Calcium 7.5 L Phosphorus 2.6 Magnesium 1.7 Total Bilirubin 0.4 AST 17 ALT 20 Alkaline Phosphatase 37 L D Total Protein 5.5 L Albumin 2.9 L Globulin 2.6 Albumin/Globulin Ratio 1.1 EKG/Cardiology Studies: Cardiology / EKG Studies 06/09/17 20:40 EKG [ELECTROCARDIOGRAM] Routine Comment: to check QTC Reason For Exam: to check QTC PRE OP:: N Does Patient Have a Pacemaker?: No PERFORMING PHYSICIAN/PROVIDER:: Montse Silva 06/10/17 06:00 EKG [ELECTROCARDIOGRAM] DAILY Comment: Reason For Exam: OD Critical Care Progress Note - Nutrition Nutrition: Nutrition Category Date Time Status NPO Diet [DIET] Diets 06/09/17 Dinner Ordered Regular Diet [DIET] Diets 06/10/17 Lunch Ordered Assessment/Plan - Assessment and Plan (Free Text) Plan: Patient seen and examined, on rounds with resident, agree with note with following additions, exceptions: Patient is 46yo female with PMHx of polysubstance abuse, COPD, Depression, schizoaffective disorder s/p overdose with benadryl and NSAIDs. Currently afebrile, HD stable, comfortable, in NAD. Benign exam, AAox3. Labs reviewed, renal function stable, LFTs wnl. EKG with normal QTc. Would DC IVF hydration. Cont with 1:1, obtain psych eval. CIWA protocol, regular diet. GI ppx, DVT ppx, stable transfer to telemetry.
[2017-06-10 14:42] LABS: PH,URINE 5.5 (4.7-8.0); URINE BILIRUBIN NEGATIVE (NEGATIVE); URINE BLOOD MODERATE (NEGATIVE); URINE GLUCOSE (UA) NEGATIVE (NEGATIVE); URINE KETONE 15 mg/dL (NEGATIVE); URINE LEUKOCYTE ESTERASE SMALL Leu/uL (NEGATIVE); URINE PROTEIN NEGATIVE mg/dL (<30 mg/dL); URINE UROBILINOGEN 0.2 E.U./dL (<1 E.U./dL)
[2017-06-10 14:44] LABS: URINE APPEARANCE SL CLOUDY (CLEAR); URINE COLOR YELLOW (YELLOW)
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
[2017-06-10 14:54] LABS: URINE AMORPHOUS SEDIMENT FEW; URINE BACTERIA LARGE (NEG); URINE EPITHELIAL CELLS MANY /hpf (0-5); URINE RBC 20 - 25 /hpf (0-2)
--- NOTE | 2017-06-10 17:38 | CARD ---
APPROVED REPORT EKG Measurement Heart [id number] VA 118P16 [id number] <Conclusion> Normal sinus rhythm Normal ECG
--- NOTE | 2017-06-10 17:46 | CARD ---
APPROVED REPORT EKG Measurement Heart [id number] CO 116P6 [id number] <Conclusion> Normal sinus rhythm Normal ECG
[2017-06-10 18:38] VITALS: PULSE 57
== END 2017-06-10 18:16 | DRG 449 ==
LOC: ED 12:55 → ERH 16:53 → ICU 17:40 → 3RNO 06-10 13:41
PROVIDERS: ADMIT Internal Medicine; ATTEND Internal Medicine
DX: T45.0X1A Poisoning by antiallergic and antiemetic drugs, accidental (unintentional), initial encounter (principal); T39.311A Poisoning by propionic acid derivatives, accidental (unintentional), initial encounter; F25.9 Schizoaffective disorder, unspecified; J43.9 Emphysema, unspecified; F11.10 Opioid abuse, uncomplicated; I10 Essential (primary) hypertension; F41.8 Other specified anxiety disorders; G89.29 Other chronic pain; M54.9 Dorsalgia, unspecified; F12.10 Cannabis abuse, uncomplicated; F10.10 Alcohol abuse, uncomplicated; F17.210 Nicotine dependence, cigarettes, uncomplicated; Z86.11 Personal history of tuberculosis; Z78.1 Physical restraint status; Z91.81 History of falling

== ENCOUNTER 2017-06-10 18:24 | Inpatient (IN) | payer MEDICAID ==
[2017-06-09 13:06] VITALS: BMI 23.9
[2017-06-10] MEDS ORDERED: Alum-Mag Hydrox-Simethicone Susp (30 mL) PO PRN (23:46)
[2017-06-10] MEDS ORDERED: Magnesium Hydroxide Susp 30 ml UD PO PRN (23:46)
[2017-06-11 01:06] VITALS: O2SAT 100
--- NOTE | 2017-06-11 02:48 | PCM.BM ---
<Main Reddy - Last Filed: 06/11/17 02:53> Treatment Plan Problems - Problems identified on initial assessmt Altered Thought Process Date Initiated: 06/10/17 Time Initiated: 21:00 Assessment reference: NA Status: Active Ineffective Coping Date Initiated: 06/10/17 Time Initiated: 21:00 Assessment reference: NA Status: Active Auditory Hallucinations Date Initiated: 06/10/17 Time Initiated: 21:00 Assessment reference: NA Status: Active Helplessness/Hopelessness Date Initiated: 06/10/17 Time Initiated: 21:00 Assessment reference: NA Status: Active Feelings of worthlessness Date Initiated: 06/10/17 Time Initiated: 21:00 Assessment reference: NA Status: Active Treatment assets and liabiliti Patient Assests: cooperative, self-reliant, negotiates basic needs, cognitively intact Patient Liabilities: live alone, poor support system, substance abuse - Milieu Protocol Maintain good personal hygiene: daily Encourage regular showers, daily Remind patient to perform daily oral care, every shift Assist patient to perform ADL's Conduct patient checks and document Observation sheet: Q15 minutes Maintain personal safety: every shift Educate patient to report safety concerns to staff, every shift Monitor environment for contraband/sharps Medication safety: Monitor for expected outcome, potential side effects: every shift, Assess barriers to learning: every shift, Assess readiness for medication education: every shift Family Contact Family involvement: Famliy/SO not involved Family contact: Patient declines to allow family contact at present Discharge/Continuing Care - Education Needs Education Needs: Patient Medication, Patient Diagnosis/Disease Process, Patient Coping Skills - Discharge Discharge Criteria: Tolerates medication w/o severe side effects, Free of Suicidal thoughts, Free of paranoid thoughts, Ability to care for self <Liliana Lima - Last Filed: 06/16/17 11:41> - Diagnosis (1) Mood disorder Status: Acute Interventions: 06/16/17 11:35 Psychoeducation Psychopharmacology/adjustment of medications as needed/ monitoring possible side effects Evaluate pt on daily basis Compliance with medications and follow up appointments Suicide and homicide risk assessment and prevention Relapse prevention Reduction of symptoms Improve functional status Family involvement As outpatient: cognitive behavioral therapy (2) Schizoaffective disorder Status: Chronic Interventions: 06/16/17 11:37 Psychoeducation Psychopharmacology/adjustment of medications as needed/ monitoring possible side effectsMonitor blood level of mood stabilizers Evaluate pt on daily basis Compliance with medications and follow up appointments Suicide and homicide risk assessment and prevention, coping strategies, safety plan Relapse prevention Reduction of symptoms Improve functional status Family involvement As outpatient: cognitive behavioral therapy (3) Borderline personality disorder in adult Status: Chronic Interventions: 06/16/17 11:39 Psychoeducation Psychopharmacology/adjustment of medications as needed/ monitoring possible side effects Evaluate pt on daily basisCompliance with medications and follow up appointments Suicide and homicide risk assessment and prevention, coping strategies, safety plan Relapse prevention Family involvement As outpatient: Transference-focused psychotherapy/dialectical behavioral therapy /schema therapy Mindfulness skills (4) Polysubstance (excluding opioids) dependence Status: Chronic Interventions: 06/16/17 11:40 Monitoring for withdrawal symptoms Monitor the need for medical detoxification Pharmacotherapy for alcohol/benzos/opioid dependence Maintaining sobriety Relapse prevention Possible rehabilitation Motivational interviewing 12-step programs: AA meetings
[2017-06-11] MEDS: Pantoprazole 40 mg EC Tab PO SCH (05:41)
[2017-06-11 07:13] VITALS: RESP 20
[2017-06-11 08:21] LABS: CHOLESTEROL 174 mg/dL (130-200); GLUCOSE,FASTING 86 mg/dL (65-110)
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
--- NOTE | 2017-06-11 21:17 | PCM.PSYCH ---
Initial Psychiatric Evaluation - Initial Psychiatric Evaluation Type of Admission: Voluntary Legal Status: Capacity Chief Complaint (in patient's own words): That wasn't a suicide attempt, I was in terrible pain" Patient's Reaction to Hospitalization: Patient is a 46 year old female admitted from ICU following an overdose. Yesterday when seen in consultation the patient had stated it was a suicide attempt because she was upset over the of her fiancee 4 months ago. He of a heart attack. They were together for 4 years. She indicates she has a long psychiatric history having been diagnosed Multiple Personality Disorder, Bipolar and Schizoaffective. Most recently she has been seeing a Dr Hernandez at the [facility]. She has been treated with Klonopin, Lexapro, and Latuda. She has stopped the Latuda as it "does nothing". She has been hospitalized twice in the past, once on this unit. Medically she has COPD, HTN, osteoarthritis, and a history of TB treated with INH. She indicates she has a history of heroin use, cocaine and marijuana. The marijuana is the most recent, and she uses it to help with her pain, plans to get it prescribed medically. Patient is very difficult to get any information or history from. She denies that she was suicidal with this overdose, and is fixed on the pain in her shoulder and back. She is med seeking and uninterested in any other topic than how her pain will be handled. She is alert and oriented x3, eye contact is good , she is irritable and annoyed when topics other than her pain are explored, she is not cooperative with this process and her affect is constricted. She denies being suicidal or homicidal, denies the presence of hallucinations, delusions, or paranoia. Concentration and focus as well as memory are impaired, sleep and appetite are impaired due to her pain. Diagnostic Impression: Mood Disorder Unspecified, Borderline Personality Disorder, Somatiform Disorder Unspecified, Polysubstance Use Disorder Plan: It is necessary for patient to be at this level of care for safety due to her recent suicide attempt. Current Medications: Active Medications Generic Name Dose Route Start Last Admin Trade Name Freq PRN Reason Stop Dose Admin Acetaminophen 650 mg 06/10/17 23:46 06/11/17 05:36 Tylenol 325mg Tab PO 650 mg Q6H PRN Administration Fever >100.4 F Al Hydrox/Mg Hydrox/Simethicone 30 ml 06/10/17 23:46 Maalox Plus 30 Ml PO DAILY PRN Indigestion / Heartburn Cyclobenzaprine HCl 5 mg 06/11/17 13:00 06/11/17 17:28 Flexeril PO 5 mg TID TON Administration Escitalopram Oxalate 20 mg 06/12/17 08:00 Lexapro PO DAILY TON Ibuprofen 400 mg 06/11/17 11:04 Motrin Tab PO Q6H PRN Pain, severe (8-10) Lorazepam 2 mg 06/10/17 19:53 06/11/17 08:15 Ativan PO 2 mg Q6H PRN Administration Anxiety Protocol Lorazepam 1 mg 06/11/17 18:00 06/11/17 17:28 Ativan PO 1 mg QID TON Administration Protocol Magnesium Hydroxide 30 ml 06/10/17 23:46 Milk Of Magnesia PO DAILY PRN Constipation Nicotine 1 patch 06/11/17 08:00 06/11/17 08:15 Nicoderm Cq TD 1 patch DAILY TON Administration Pantoprazole Sodium 40 mg 06/11/17 06:00 06/11/17 05:41 Protonix Ec Tab PO 40 mg 0600 TON Administration Past Psychiatric History - Past Psychiatric History Pertinent Medical Hx (Current Medical&Sleep Prob, Allergies): Allergies Allergy/AdvReac Type Severity Reaction Status Date / Time isoniazid AdvReac URTICARIA Verified 01/26/16 09:04 REFAMYCIN AdvReac URTICARIA Uncoded 01/26/16 09:04 Clonazepam [Klonopin] 0.5 mg PO QID 06/10/17 Escitalopram [Lexapro] 20 mg PO DAILY 06/10/17 LORazepam [Ativan] 1 mg PO Q8 PRN #6 tab 06/10/17 Latuda 50 mg PO DAILY 06/10/17 Nicotine [Nicoderm Cq] 1 each TD DAILY #10 patch.td24 06/10/17 Pantoprazole Sodium [Protonix] 40 mg PO DAILY #30 ect 06/10/17
[2017-06-12] MEDS: Pantoprazole 40 mg EC Tab PO SCH (05:10)
--- NOTE | 2017-06-12 08:58 | RAD ---
PROCEDURE: Cervical Spine Radiographs. HISTORY: Pain. COMPARISON: 04/01/2016 FINDINGS: BONES: Alignment maintained. No fracture. Dens Intact. DISC SPACES: There is disc degeneration at C5-6 and C6-7 with anterior osteophytes. There is reversal of the normal curvature. The findings are unchanged SOFT TISSUES: Normal. No prevertebral soft tissue swelling. OTHER FINDINGS: None. IMPRESSION: Disc degeneration at C5-6 and C6-7
--- NOTE | 2017-06-12 18:11 | PCM.PYCHPN ---
Psychiatric Progress Note - Psychiatric Progress Note Patient Chief Complaint: That wasn't a suicide attempt, I was in terrible pain" Problems Identified/Issues Discussed: Patient would like to be discharged, indicates that she is "absolutely fine" and was "never suicidal". She was observed socializing on the unit, appears to be at ease. She continues to focus on the somatic wanting to get out and deal with her medical needs. She is following the unit routine and participating in groups, there are no behavioral issues at this time.
[2017-06-13] MEDS: Pantoprazole 40 mg EC Tab PO SCH (06:11)
[2017-06-13 07:24] VITALS: BP 91/51; PULSE 59; TEMP 97.9
--- NOTE | 2017-06-13 21:18 | PCM.PYCHDC ---
Mental Status Examination - Mental Status Examination Orientation: Person, Place, Situation, Time Memory: Intact Mood: Neutral Affect: Broad Speech: Appropriate Attention: WNL Concentration: WNL Association: WNL Fund of Knowledge: WNL Formal Thought Process: No Impairment Description of patient's judgement and insight: Patient denies being suicidal or homicidal, appears in no imminent danger of hurting herself or anyone else. Psychotic Thoughts and Behaviors: Patient denies the presence of hallucinations, delusions, or paranoia. Suicidal Ideation: No Current Homicidal Ideation?: No Discharge Summary - Discharge Note Reason for Hospitalization: Patient is a 46 year old female admitted from ICU following an overdose. Yesterday when seen in consultation the patient had stated it was a suicide attempt because she was upset over the of her fiancee 4 months ago. He of a heart attack. They were together for 4 years. She indicates she has a long psychiatric history having been diagnosed Multiple Personality Disorder, Bipolar and Schizoaffective. Most recently she has been seeing a Dr Hernandez at the [facility]. She has been treated with Klonopin, Lexapro, and Latuda. She has stopped the Latuda as it "does nothing". She has been hospitalized twice in the past, once on this unit. Medically she has COPD, HTN, osteoarthritis, and a history of TB treated with INH. She indicates she has a history of heroin use, cocaine and marijuana. The marijuana is the most recent, and she uses it to help with her pain, plans to get it prescribed medically. Patient is very difficult to get any information or history from. She denies that she was suicidal with this overdose, and is fixed on the pain in her shoulder and back. She is med seeking and uninterested in any other topic than how her pain will be handled. She is alert and oriented x3, eye contact is good , she is irritable and annoyed when topics other than her pain are explored, she is not cooperative with this process and her affect is constricted. She denies being suicidal or homicidal, denies the presence of hallucinations, delusions, or paranoia. Concentration and focus as well as memory are impaired, sleep and appetite are impaired due to her pain. Diagnostic Impression: Mood Disorder Unspecified, Borderline Personality Disorder, Somatiform Disorder Unspecified, Polysubstance Use Disorder Plan: It is necessary for patient to be at this level of care for safety due to her recent suicide attempt. Laboratory Data: Fasting glucose, triglycerides, cholesterol from 06/11/2017 WNL Consultations:: List each consultation separately and include: 1. Reason for request. 2. Findings. 3. Follow-up Consultations: Patient was seen by hospitalist 06/11/2017 for management of COPD, Asthma, Osteoarthritis, History of TB Summary of Hospital Course include:: 1. Description of specific treatment plan utilized for patients during their course of treatmen. 2. Summarize the time- course for resolution of acute symptoms and/or regressed behaviors. 3. Describe issues identified and worked on during hospitalization. 4. Describe medication utilized. 5. Describe medical problems identified and treated. 6. Reassessment of suicide risk Summary of Hospital Course: Patient was initially seen in ICU post suicide attempt by overdose due to grief over of her fiancee 4 months ago. Patient voluntarily came to psychiatric unit, and indicated she had not been suicidal, she was just in pain. During the course of her hospitalization she maintained she was not suicidal or homicidal. - Diagnosis (1) Mood disorder Status: Acute Priority: Medium (2) Overdose Status: Acute (3) Schizoaffective disorder Status: Chronic Priority: Medium - Final Diagnosis (DSM 5) Condition upon Discharge: STABLE Disposition: HOME/ ROUTINE Prescriptions/Medication Reconciliation: Cyclobenzaprine [Cyclobenzaprine HCl] 5 mg PO TID #6 tab Escitalopram [Lexapro] 20 mg PO DAILY #14 tab Escitalopram [Lexapro] 20 mg PO DAILY 14 Days tab LORazepam [Ativan] 1 mg PO QID #30 tab Nicotine [Nicoderm Cq] 1 each TD DAILY #10 patch.td24 - Smoking Cessation Smoking Cessation Medication prescribed: Yes - Antipsychotic Medications Pt discharged on 2 or more routine antipsychotic medications: No
== END 2017-06-13 14:55 | disposition home or self-care (01) | DRG 430 ==
LOC: PSYC 18:24
PROVIDERS: ADMIT Psychiatry & Neurology Addiction Medicine; ATTEND Psychiatry & Neurology Addiction Medicine
DX: F39 Unspecified mood [affective] disorder (principal); F11.20 Opioid dependence, uncomplicated; J44.9 Chronic obstructive pulmonary disease, unspecified; F60.3 Borderline personality disorder; F25.9 Schizoaffective disorder, unspecified; F10.10 Alcohol abuse, uncomplicated; F17.210 Nicotine dependence, cigarettes, uncomplicated; F32.9 Major depressive disorder, single episode, unspecified; I10 Essential (primary) hypertension; M19.90 Unspecified osteoarthritis, unspecified site; G89.29 Other chronic pain; M48.02 Spinal stenosis, cervical region; Z86.11 Personal history of tuberculosis; Z91.5 Personal history of self-harm